=== PATIENT | female | born 1985 | race Caucasian/White ===

== ENCOUNTER 2017-06-26 19:18 | Observation (INO) | payer OTHER ==
[2017-06-26] MEDS ORDERED: KETOROLAC 30 MG/ML 1 ML VIAL IVP STA (19:37)
[2017-06-26] MEDS ORDERED: diphenhydrAMINE 50 MG/ML 1 ML VIAL IVP STA (19:37)
[2017-06-26] MEDS ORDERED: SODIUM CHLORIDE 0.9% 1,000 ML IV STA ×2 (19:37)
[2017-06-26] MEDS ORDERED: HYDROmorphone 1 MG/ML 1 ML SYRINGE IVP STA (19:37)
[2017-06-26] MEDS ORDERED: METOCLOPRAMIDE 5 MG/ML 2 ML VIAL IVP STA (19:37)
[2017-06-26] MEDS ORDERED: MAG HYDROX/AL HYDROX/SIMETH 30 ML, HYOSCYAMINE ELIXIR 10 ML, CIMETIDINE HCL 300 MG, LID... PO STA ×4 (19:38)
--- NOTE | 2017-06-26 19:44 | ED ---
Abdominal Pain HPI - General Chief Complaint: Abdominal Pain Stated Complaint: Crohns Time Seen by Provider: 06/26/17 19:29 Source: patient, RN notes reviewed, old records reviewed Mode of arrival: ambulatory Limitations: no limitations - History of Present Illness Initial Comments: This is a pleasant 32-year-old female presents emergency department today chief complaint of diffuse abdominal pain for the past 2 days. She also has had multiple episodes of vomiting and diarrhea. She has a history of Crohn's disease and believes she is having a flare. Surgical history includes cholecystectomy, and C-sections. She denies any fever or chills. She did note some blood in her stools today but not a significant amount. She reports the last time she was on steroids and antibiotics was approximately 3 months ago. She is from [place], [place]. She is currently in [facility]. Patient states that she has had over 10 episodes of vomiting today, and is having a sore throat due to this. Patient denies any chest pain, shortness of breath, headache, vision changes, neck pain, or any other symptoms. - Related Data Home Medications Medication Instructions Recorded Confirmed Dicyclomine [Bentyl] 20 mg PO TID 06/26/17 06/26/17 Loperamide [Imodium] 2 mg PO QID PRN 06/26/17 06/26/17 OLANZapine [ZyPREXA] 20 mg PO DAILY 06/26/17 06/26/17 PARoxetine HCL [Paxil] 10 mg PO DAILY 06/26/17 06/26/17 Promethazine Suppository 25 mg RECTAL BID PRN 06/26/17 06/26/17 [Phenergan] Allergies Allergy/AdvReac Type Severity Reaction Status Date / Time divalproex sodium Allergy Confusion Verified 06/26/17 19:39 [From Depakote] Iodinated Contrast- Oral and Allergy Swelling Verified 06/26/17 19:39 IV Dye Penicillins Allergy Swelling Verified 06/26/17 19:39 Review of Systems ROS Statement: Those systems with pertinent positive or pertinent negative responses have been documented in the HPI. ROS Other: All systems not noted in ROS Statement are negative. Past Medical History Additional Past Medical History / Comment(s): chrons History of Any Multi-Drug Resistant Organisms: None Reported Past Surgical History: Section, Cholecystectomy Past Psychological History: Bipolar Smoking Status: Current every day smoker Past Alcohol Use History: Occasional Past Drug Use History: Cocaine General Exam - General Exam Comments Initial Comments: 32-year-old female. No distress. Limitations: no limitations General appearance: alert, in no apparent distress Head exam: Present: atraumatic, normocephalic, normal inspection Eye exam: Present: normal appearance, PERRL, EOMI. Absent: scleral icterus, conjunctival injection, periorbital swelling ENT exam: Present: normal exam, mucous membranes moist Neck exam: Present: normal inspection. Absent: tenderness, meningismus, lymphadenopathy Respiratory exam: Present: normal lung sounds bilaterally. Absent: respiratory distress, wheezes, rales, rhonchi, stridor Cardiovascular Exam: Present: regular rate, normal rhythm, normal heart sounds. Absent: systolic murmur, diastolic murmur, rubs, gallop, clicks GI/Abdominal exam: Present: soft, tenderness (Diffuse), normal bowel sounds. Absent: distended, guarding, rebound, rigid Extremities exam: Present: normal inspection, full ROM, normal capillary refill. Absent: tenderness, pedal edema, joint swelling, calf tenderness Back exam: Present: normal inspection Neurological exam: Present: alert, oriented X3, CN II-XII intact Psychiatric exam: Present: normal affect, normal mood Skin exam: Present: warm, dry, intact, normal color. Absent: rash Course Vital Signs 06/26/17 06/26/17 06/26/17 19:20 20:59 23:01 Temperature 98.5 F Pulse Rate 108 H 79 95 Respiratory 18 18 18 Rate Blood Pressure 120/78 123/75 125/74 O2 Sat by Pulse 100 98 96 Oximetry 06/27/17 00:15 Temperature Pulse Rate 98 Respiratory 18 Rate Blood Pressure 108/70 O2 Sat by Pulse 96 Oximetry Medical Decision Making - Medical Decision Making Physical 32-year-old female presents emergency department today with a known history of Crohn's disease chief complaint of multiple episodes of vomiting, bloody stools and diarrhea. She does have diffuse abdominal tenderness. Patient reports she's in [facility] facility due to alcohol abuse. Patient reports that she could have a possible exposure to hep C but she is unsure. At this time patient's labwork was reviewed to show significant for elevated liver enzymes. She was diffusely tender over abdomen I ordered a CT. Stone if any acute process at this time. Patient's stool occult is positive. Discussed with Dr. Reyes. He discussed this with the admitting physician Dr. Villeda. This patient this time pending hepatitis panel. - Lab Data Result diagrams: 06/26/17 20:15 06/26/17 20:15 Lab Results 06/26/17 06/26/17 06/26/17 Range/Units 20:15 20:15 20:15 WBC 6.9 (3.8-10.6) k/uL RBC 4.80 (3.80-5.40) m/uL Hgb 16.2 H (11.4-16.0) gm/dL Hct 47.8 H (34.0-46.0) % MCV 99.5 (80.0-100.0) fL MCH 33.7 (25.0-35.0) pg MCHC 33.9 (31.0-37.0) g/dL RDW 12.3 (11.5-15.5) % Plt Count 243 (150-450) k/uL Neutrophils % 61 % Lymphocytes % 27 % Monocytes % 7 % Eosinophils % 2 % Basophils % 1 % Neutrophils # 4.2 (1.3-7.7) k/uL Lymphocytes # 1.8 (1.0-4.8) k/uL Monocytes # 0.5 (0-1.0) k/uL Eosinophils # 0.1 (0-0.7) k/uL Basophils # 0.1 (0-0.2) k/uL Sodium 142 (137-145) mmol/L Potassium 4.7 (3.5-5.1) mmol/L Chloride 108 H (98-107) mmol/L Carbon Dioxide 26 (22-30) mmol/L Anion Gap 8 mmol/L BUN 13 (7-17) mg/dL Creatinine 0.84 (0.52-1.04) mg/dL Est GFR (MDRD) Af Amer >60 (>60 ml/min/1.73 sqM) Est GFR (MDRD) Non-Af >60 (>60 ml/min/1.73 sqM) Glucose 117 H (74-99) mg/dL Calcium 10.1 (8.4-10.2) mg/dL Total Bilirubin 0.7 (0.2-1.3) mg/dL AST 431 H (14-36) U/L ALT 919 H (9-52) U/L Alkaline Phosphatase 242 H (38-126) U/L Total Protein 7.7 (6.3-8.2) g/dL Albumin 4.2 (3.5-5.0) g/dL Amylase 111 H (30-110) U/L Lipase 328 H (23-300) U/L Urine Color Yellow Urine Appearance Clear (Clear) Urine pH 7.5 (5.0-8.0) Ur Specific Pyrites 1.009 (1.001-1.035) Urine Protein Negative (Negative) Urine Glucose (UA) Negative (Negative) Urine Ketones Negative (Negative) Urine Blood Negative (Negative) Urine Nitrite Negative (Negative) Urine Bilirubin Negative (Negative) Urine Urobilinogen <2.0 (<2.0) mg/dL Ur Leukocyte Esterase Negative (Negative) Stool Occult Blood (Negative) 06/26/17 Range/Units 21:55 WBC (3.8-10.6) k/uL RBC (3.80-5.40) m/uL Hgb (11.4-16.0) gm/dL Hct (34.0-46.0) % MCV (80.0-100.0) fL MCH (25.0-35.0) pg MCHC (31.0-37.0) g/dL RDW (11.5-15.5) % Plt Count (150-450) k/uL Neutrophils % % Lymphocytes % % Monocytes % % Eosinophils % % Basophils % % Neutrophils # (1.3-7.7) k/uL Lymphocytes # (1.0-4.8) k/uL Monocytes # (0-1.0) k/uL Eosinophils # (0-0.7) k/uL Basophils # (0-0.2) k/uL Sodium (137-145) mmol/L Potassium (3.5-5.1) mmol/L Chloride (98-107) mmol/L Carbon Dioxide (22-30) mmol/L Anion Gap mmol/L BUN (7-17) mg/dL Creatinine (0.52-1.04) mg/dL Est GFR (MDRD) Af Amer (>60 ml/min/1.73 sqM) Est GFR (MDRD) Non-Af (>60 ml/min/1.73 sqM) Glucose (74-99) mg/dL Calcium (8.4-10.2) mg/dL Total Bilirubin (0.2-1.3) mg/dL AST (14-36) U/L ALT (9-52) U/L Alkaline Phosphatase (38-126) U/L Total Protein (6.3-8.2) g/dL Albumin (3.5-5.0) g/dL Amylase (30-110) U/L Lipase (23-300) U/L Urine Color Urine Appearance (Clear) Urine pH (5.0-8.0) Ur Specific Pyrites (1.001-1.035) Urine Protein (Negative) Urine Glucose (UA) (Negative) Urine Ketones (Negative) Urine Blood (Negative) Urine Nitrite (Negative) Urine Bilirubin (Negative) Urine Urobilinogen (<2.0) mg/dL Ur Leukocyte Esterase (Negative) Stool Occult Blood Positive H (Negative) - Radiology Data Radiology results: report reviewed CT shows no acute intra-abdominal or intrapelvic process. Colonic fecal stasis. Notes of appendicitis or palpable traction. Disposition Clinical Impression: Acute hepatitis Disposition: ADMITTED IP TO THIS [facility] Condition: Stable Referrals: Nonstaff,Physician [REFERRING] - 1-2 days Time of Disposition: 00:41
[2017-06-26 20:26] LABS: Basophils # (A) 0.1 k/uL (0-0.2); Basophils % (A) 1 %; Eosinophils # (A) 0.1 k/uL (0-0.7); Eosinophils % (A) 2 %; HCT 47.8 % (34.0-46.0); HGB 16.2 gm/dL (11.4-16.0); Lymphocytes # (A) 1.8 k/uL (1.0-4.8); Lymphocytes % (A) 27 %; MCH 33.7 pg (25.0-35.0); MCHC 33.9 g/dL (31.0-37.0); MCV 99.5 fL (80.0-100.0); Mean Platelet Volume 7.7; Monocytes # (A) 0.5 k/uL (0-1.0); Monocytes % (A) 7 %; Neutrophils # (A) 4.2 k/uL (1.3-7.7); Neutrophils % (A) 61 %; Platelet Count 243 k/uL (150-450); RDW 12.3 % (11.5-15.5); WBC 6.9 k/uL (3.8-10.6)
[2017-06-26 20:27] LABS: Appearance,Urine Clear (Clear); Bilirubin,Urine Negative (Negative); Blood,Urine Negative (Negative); Color,Urine Yellow; Glucose,Urine (UA) Negative (Negative); Ketones,Urine Negative (Negative); Leukocyte Esterase,Urine Negative (Negative); Nitrite,Urine Negative (Negative); PH, Urine 7.5 (5.0-8.0); Protein,Urine Negative (Negative); Specific Gravity,Urine 1.009 (1.001-1.035); Urobilinogen,Urine <2.0 mg/dL (<2.0)
[2017-06-26 20:37] LABS: ALT 919 U/L (9-52); AST 431 U/L (14-36); Albumin 4.2 g/dL (3.5-5.0); Alkaline Phosphatase 242 U/L (38-126); Amylase 111 U/L (30-110); Anion Gap 8 mmol/L; Blood Urea Nitrogen 13 mg/dL (7-17); Calcium 10.1 mg/dL (8.4-10.2); Carbon Dioxide 26 mmol/L (22-30); Chloride 108 mmol/L (98-107); Glucose 117 mg/dL (74-99); Lipase 328 U/L (23-300); Potassium 4.7 mmol/L (3.5-5.1); Sodium 142 mmol/L (137-145); Total Bilirubin 0.7 mg/dL (0.2-1.3); Total Protein 7.7 g/dL (6.3-8.2)
--- NOTE | 2017-06-26 20:57 | XR ---
EXAMINATION TYPE: XR KUB DATE OF EXAM: 06/26/2017 8:41 PM CLINICAL HISTORY: Abdominal pain. TECHNIQUE: 2 views the abdomen were obtained in upright position. COMPARISON: None. FINDINGS: There is nonspecific bowel gas pattern. Surgical clips are identified in the gallbladder fo ssa. There is no evidence of bowel obstruction or fecal impaction. IMPRESSION: Overall nonobstructive bowel gas pattern.
[2017-06-26] MEDS ORDERED: RX INFO: IV CONTRAST WAS GIVEN 1 EACH MISC MISCELLANE PRN (22:29)
[2017-06-26] MEDS ORDERED: methylPREDNISolone SOD SUCCI 125 MG/2 ML VIAL IV STA (22:29)
[2017-06-26] MEDS ORDERED: PROMETHAZINE INJ 25 MG in SODIUM CHLORIDE 0.9% 50 ML IVPB STA (22:29)
--- NOTE | 2017-06-26 23:08 | CT ---
EXAM: CT Abdomen and Pelvis With Intravenous Contrast CLINICAL HISTORY: Reason: Nausea vomiting TECHNIQUE: Axial computed tomography images of the abdomen and pelvis with intravenous contrast. DLP is 447.0 mGy-cm. This CT exam was performed using one or more of the following dose reduction techniques: automated exposure control, adjustment of the mA and/or kV according to patient size, and/or use of iterative reconstruction technique. COMPARISON: No relevant prior studies available. FINDINGS: Lower thorax: No acute findings. ABDOMEN: Liver: Unremarkable. No mass. Gallbladder and bile ducts: Unremarkable. No calcified stones. No ductal dilation. Pancreas: Unremarkable. No mass. No ductal dilation. Spleen: Unremarkable. No splenomegaly. Adrenals: Unremarkable. No mass. Kidneys and ureters: Unremarkable. No solid mass. No hydronephrosis. Stomach and bowel: Unremarkable. No obstruction. No mucosal thickening. Appendix: Uterus is not enlarged. A 2.3 cm cyst is noted in the right ovary. Stool noted throughout the colon. Appendix is normal. Small bowel loops are normal. PELVIS: Bladder: Unremarkable. No mass. Reproductive: Unremarkable as visualized. ABDOMEN and PELVIS: Intraperitoneal space: Liver, spleen, pancreas, and both adrenal glands are normal. Both kidneys and the urinary bladder are normal. No free fluid. Gallbladder is been surgically removed. No free air. Bones/joints: Osseous structures are intact. No acute fracture. No dislocation. Soft tissues: Unremarkable. Vasculature: Unremarkable. No abdominal aortic aneurysm. Lymph nodes: Unremarkable. No enlarged lymph nodes. IMPRESSION: 1. No acute intra-abdominal or intrapelvic process. 2. Colonic fecal stasis. 3. No evidence of appendicitis or bowel obstruction.
[2017-06-27] MEDS ORDERED: ONDANSETRON 4 MG/2 ML VIAL IVP PRN (00:41)
[2017-06-27] MEDS ORDERED: ACETAMINOPHEN TAB 325 MG TAB PO PRN (00:41)
[2017-06-27] MEDS ORDERED: NALOXONE 0.4 MG/ML 1 ML VIAL IV PRN ×2 (00:41→01:15)
[2017-06-27] MEDS ORDERED: IBUPROFEN 400 MG TAB PO PRN (00:41)
[2017-06-27] MEDS ORDERED: NICOTINE 14MG/24HR PATCH TRANSDERM STA (01:05)
[2017-06-27] MEDS ORDERED: MORPHINE SULFATE 5 MG/ML SYRINGE IV PRN (01:15)
[2017-06-27] MEDS: SODIUM CHLORIDE 0.9% 1,000 ML IV SCH ×2 (01:17→09:18)
[2017-06-27] MEDS: KETOROLAC 30 MG/ML 1 ML VIAL IVP PRN ×2 (01:25→06:39)
--- NOTE | 2017-06-27 01:41 | P.HPIM ---
History of Present Illness H&P Date: 06/27/17 Chief Complaint: Vomiting and diarrhea 32-year-old female presents emergency department today chief complaint of diffuse abdominal pain for the past 2 days. She also has had multiple episodes of vomiting and diarrhea. She has a history of Crohn's disease and believes she is having a flare. Patient states that she has had over 10 episodes of vomiting and 8 episodes of diarrhea today, and is having a sore throat due to the vomiting. She denies any fever or chills but stated that she feels hot when she is throwing up. The color of her stool was dark brown and she did note some blood in it. She reports that when she gets her Crohn disease flareup she gets treated with steroids and antibiotics and it resolves with that treatment. The last time she was on steroids and antibiotics was approximately 3 months ago. Patient denies any chest pain, shortness of breath, headache, vision changes, neck pain, or any other symptoms. Patient stated that when she drinks alcohol or when she is under stress she usually gets the flareups so over the last several years she managed to lower her alcohol intake and to lower the stress level so that she won't get flareups frequently. Review of Systems 12 point review of system was performed, negative except for HPI Past Medical History Additional Past Medical History / Comment(s): chrons History of Any Multi-Drug Resistant Organisms: None Reported Past Surgical History: Section, Cholecystectomy Past Psychological History: Bipolar Smoking Status: Current every day smoker Past Alcohol Use History: Occasional Past Drug Use History: Cocaine Medications and Allergies Home Medications Medication Instructions Recorded Confirmed Type Dicyclomine [Bentyl] 20 mg PO TID 06/26/17 06/26/17 History Loperamide [Imodium] 2 mg PO QID PRN 06/26/17 06/26/17 History OLANZapine [ZyPREXA] 20 mg PO DAILY 06/26/17 06/26/17 History PARoxetine HCL [Paxil] 10 mg PO DAILY 06/26/17 06/26/17 History Promethazine Suppository 25 mg RECTAL BID PRN 06/26/17 06/26/17 History [Phenergan] Allergies Allergy/AdvReac Type Severity Reaction Status Date / Time divalproex sodium Allergy Confusion Verified 06/26/17 19:39 [From Depakote] Iodinated Contrast- Oral and Allergy Swelling Verified 06/26/17 19:39 IV Dye Penicillins Allergy Swelling Verified 06/26/17 19:39 Physical Exam Vitals: Vital Signs Temp Pulse Resp BP Pulse Ox 06/27/17 01:17 97.5 F L 92 17 115/75 95 06/27/17 00:15 98 18 108/70 96 06/26/17 23:01 95 18 125/74 96 06/26/17 20:59 79 18 123/75 98 06/26/17 19:20 98.5 F 108 H 18 120/78 100 Intake and Output 06/26/17 06/26/17 06/27/17 14:59 22:59 06:59 Other: Weight 68.039 kg Patient Weight 06/27/17 06:59 Weight 68.039 kg Constitutional: No acute distress, conversant, pleasant Eyes:Anicteric sclerae, moist conjunctiva, no lid-lag, PERRLA, ENMT: Oropharynx clear, no erythema, exudates Neck: Supple, FROM, no masses, or JVD, No carotid bruits, No thyromegaly Lungs: Clear to auscultation, Clear to percussion, Normal respiratory effort, no accessory muscle use Cardiovascular: Heart regular in rate and rhythm, No murmurs, gallops, or rubs, No peripheral edema Abdominal: Soft, diffusely tender, no guarding, rebound or rigidity, Normoactive bowel sounds, No hepatomegaly, No splenomegaly, No palpable mass Skin: Normal temperature, tone, texture, turgor, no induration, No subcutaneous nodules, No rash, lesions, No ulcers Extremities: No digital cyanosis, No clubbing, Pedal pulses intact and symmetrical, Radial pulses intact and symmetrical, No calf tenderness Psychiatric: Alert and oriented to person, place and time, appropriate affect, intact judgement Neuro: Muscles Strength 5/5 in all 4 extremities, Sensation to light touch grossly present throughout, Cranial nerves II-XII grossly intact, no focal sensory deficits Results CBC & Chem 7: 06/26/17 20:15 06/26/17 20:15 Labs: Abnormal Lab Results - Last 24 Hours (Table) 06/26/17 06/26/17 06/26/17 Range/Units 20:15 20:15 21:55 Hgb 16.2 H (11.4-16.0) gm/dL Hct 47.8 H (34.0-46.0) % Chloride 108 H (98-107) mmol/L Glucose 117 H (74-99) mg/dL AST 431 H (14-36) U/L ALT 919 H (9-52) U/L Alkaline Phosphatase 242 H (38-126) U/L Amylase 111 H (30-110) U/L Lipase 328 H (23-300) U/L Stool Occult Blood Positive H (Negative) Assessment and Plan Plan: #1 Acute abdominal pain, vomiting and diarrhea: Unclear etiology could be secondary to acute Crohn disease flareup Reviewed labs and imaging studies including computed tomography scan of the abdomen Obtain her medical records in the morning Admit to [facility] Nothing by mouth IV fluids Start Solu-Medrol, Levaquin and Flagyl for possible Crohn disease flareup Consult GI #2 Elevated LFTs: Rule out acute hepatitis Send hepatitis panel Repeat LFTs in the morning Liver ultrasound GI consult #3 Bipolar disorder: Stable Continue home medications #4 DVT prophylaxis SCDs
[2017-06-27] MEDS ORDERED: LEVOFLOXACIN 750MG-D5W PMX 750 MG in DEXTROSE/WATER 1 150ML.BAG IVPB SCH (02:00)
[2017-06-27] MEDS ORDERED: methylPREDNISolone SOD SUCCI 40 MG/ML 1 ML VIAL IV SCH (06:00)
--- NOTE | 2017-06-27 07:46 | US ---
EXAMINATION TYPE: US gallbladder DATE OF EXAM: 06/27/2017 COMPARISON: CT CLINICAL HISTORY: Pain. GB surgically absent per patient, history of Crohn's disease, elevated liver enzymes per patient. EXAM MEASUREMENTS: Liver Length: 16.4 cm Gallbladder Wall: Surgically absent cm CBD: 0.5 cm Right Kidney: 11.8 x 3.7 x 5.0 cm Pancreas: visualized portions wnl Liver: wnl Gallbladder: Surgically absent CBD: wnl Right Kidney: No hydronephrosis or masses seen Limited views of the pancreas are unremarkable. The liver is normal in size without biliary dilatation. The gallbladder is been removed. Distal common hepatic duct measures 5 mm. Right kidney is normal. The intrahepatic IVC is normal. IMPRESSION: Status post cholecystectomy.
[2017-06-27 07:48] VITALS: BP 116/71; PULSE 104; RESP 18; TEMP 98.1
[2017-06-27 07:56] LABS: Basophils % (A) 0 %; Eosinophils % (A) 0 %; HCT 45.2 % (34.0-46.0); HGB 14.8 gm/dL (11.4-16.0); Lymphocytes # (A) 0.8 k/uL (1.0-4.8); Lymphocytes % (A) 11 %; MCH 33.3 pg (25.0-35.0); MCHC 32.7 g/dL (31.0-37.0); MCV 101.7 fL (80.0-100.0); Mean Platelet Volume 7.4; Monocytes # (A) 0.1 k/uL (0-1.0); Monocytes % (A) 2 %; Neutrophils # (A) 6.7 k/uL (1.3-7.7); Neutrophils % (A) 86 %; Platelet Count 237 k/uL (150-450); RBC 4.44 m/uL (3.80-5.40); RDW 12.2 % (11.5-15.5); WBC 7.8 k/uL (3.8-10.6)
[2017-06-27 08:10] LABS: ALT 766 U/L (9-52); AST 289 U/L (14-36); Albumin 3.3 g/dL (3.5-5.0); Alkaline Phosphatase 210 U/L (38-126); Amylase 83 U/L (30-110); Anion Gap 6 mmol/L; Blood Urea Nitrogen 14 mg/dL (7-17); Calcium 8.9 mg/dL (8.4-10.2); Carbon Dioxide 18 mmol/L (22-30); Chloride 114 mmol/L (98-107); Glucose 124 mg/dL (74-99); Lipase 146 U/L (23-300); Magnesium 1.9 mg/dL (1.6-2.3); Phosphorus 3.2 mg/dL (2.5-4.5); Potassium 4.8 mmol/L (3.5-5.1); Sodium 138 mmol/L (137-145); Total Bilirubin 0.5 mg/dL (0.2-1.3); Total Protein 6.6 g/dL (6.3-8.2)
[2017-06-27 08:13] LABS: INR 1.1 (<1.2); Prothrombin Time 10.4 sec (9.0-12.0)
--- NOTE | 2017-06-27 08:28 | P.DS ---
Providers Date of admission: 06/27/17 00:42 Expected date of discharge: 06/27/17 Attending physician: Boris Johnson MD Consults: 06/27/17 01:18 Consult Physician Routine Consulting Provider: Caridad Oliva Consult Reason/Comments: crohn flare up Do you want consulting provider notified?: Yes Primary care physician: Priscilla Madera Ali - Discharge Diagnosis(es) (1) Acute Crohn's disease Current Visit: Yes Status: Acute (2) Tobacco abuse Current Visit: Yes Status: Acute (3) Acute hepatitis Current Visit: Yes Status: Acute Hospital Course: Patient is a 32-year-old female with a past medical history of Crohn' s disease, tobacco abuse, and opiate abuse who presented to the hospital with complaints of abdominal pain. She was found to have acute hepatitis and acute exacerbation of Crohn's disease. She was placed on steroids and antibiotics. her abdominal pain, nausea, and diarrhea resolved quickly. She was requesting to be discharged as she is currently at [facility]. She admits to IV opiated abuse in the past and knows that she may be at risk for hepaitits. She is aware that her liver enzymes are still high, but decreasing, and her hepatitis panel is pending. She is aware that if her liver enzymes continue to increase she may develop complications and she will follow-up on her blood work and request results thought medical records. Though I would like her to stay until her repeat liver enzymes are available she does not want to do this and is requesting discharge. She is alert and oriented X3 with a clear though process. She will complete an outpatient course of steroids and Antibiotics for her crohn'c flair. She is aware that she should follow-up with her PCP after completing rehab. She will be discharged. Patient seen and examined at bedside. Nausea, diarrhea, and abdominal pain. Aware that her liver enzymes are elevated and her hepatitis panel is pending. Discussion as outlined above. Vital signs reviewed and stable. General: non toxic, no distress, appears at stated age Derm: warm, dry Head: atraumatic, normocephalic, symmetric Eyes: EOMI, no lid lag, anicteric sclera Mouth: no lip lesion, mucus membranes moist Cardiovascular: S1S2 reg, no murmur, positive posterior tibial pulse bilateral, Lungs: CTA bilateral, no rhonchi, no rales , no accessory muscle use Abdominal: soft, nontender to palpation, no guarding, no appreciable organomegaly Ext: no gross muscle atrophy, no edema, no contractures Neuro: CN II-XI grossly intact, no focal neuro deficits Psych: Alert, oriented, appropriate affect A total of 25 minutes of time were spent preparing this complex discharge summary . Pertinent Studies: CT abdomen and pelvis- no acute process Liver ultrasound- s/p sandy Patient Condition at Discharge: Stable Plan - Discharge Summary Discharge Rx Participant: No New Discharge Prescriptions: New Ciprofloxacin HCl [Cipro] 250 mg PO Q12HR #10 tablet metroNIDAZOLE [Flagyl] 500 mg PO TID #15 tab predniSONE 20 mg PO DAILY #5 tab Continue OLANZapine [ZyPREXA] 20 mg PO DAILY Dicyclomine [Bentyl] 20 mg PO TID PARoxetine HCL [Paxil] 10 mg PO DAILY Promethazine Suppository [Phenergan] 25 mg RECTAL BID PRN #30 supp PRN Reason: Nausea Discontinued Loperamide [Imodium] 2 mg PO QID PRN PRN Reason: Loose Stool Discharge Medication List Dicyclomine [Bentyl] 20 mg PO TID 06/26/17 [History] OLANZapine [ZyPREXA] 20 mg PO DAILY 06/26/17 [History] PARoxetine HCL [Paxil] 10 mg PO DAILY 06/26/17 [History] Ciprofloxacin HCl [Cipro] 250 mg PO Q12HR #10 tablet 06/27/17 [Rx] Promethazine Suppository [Phenergan] 25 mg RECTAL BID PRN #30 supp 06/27/17 [Rx] metroNIDAZOLE [Flagyl] 500 mg PO TID #15 tab 06/27/17 [Rx] predniSONE 20 mg PO DAILY #5 tab 06/27/17 [Rx] Follow up Appointment(s)/Referral(s): Nonstaff,Physician [REFERRING] - 1-2 days Activity/Diet/Wound Care/Special Instructions: GI soft bland diet Activity as tolerated. Follow up with your family physician after discharge from rehab. Your Hepatitis testing is still pending and your liver enzymes are high, please make sure that you follow up on your results. You would also benefit being evaluated by a clinical research monitor for your crohn's disease and elevated lived enzymes. Discharge Disposition: HOME SELF-CARE
[2017-06-27] MEDS ORDERED: PARoxetine 10 MG TAB PO SCH (09:00)
[2017-06-27] MEDS ORDERED: metroNIDAZOLE 500 MG TAB PO SCH (09:00)
[2017-06-27] MEDS ORDERED: OLANZapine 10 MG TAB PO SCH (09:00)
[2017-06-27] MEDS ORDERED: NICOTINE 14MG/24HR PATCH TRANSDERM SCH (09:00)
[2017-06-27] MEDS ORDERED: PANTOPRAZOLE 40 MG/10 ML VIAL IV SCH (09:00)
[2017-06-27 10:40] LABS: Hepatitis A Antibody IgM Non-Reactive (Non-Reactive); Hepatitis B Core IgM Non-Reactive (Non-Reactive)
== END 2017-06-27 10:22 ==
LOC: EC 19:18 → 4MS4W 06-27 00:42 → INTOOBSV 06-27 00:42 → 4MS4W 06-27 01:01 → UNDODISIN 06-27 10:22
PROVIDERS: ADMIT Internal Medicine; ATTEND Internal Medicine
DX: K50.90 Crohn's disease, unspecified, without complications (principal); F17.200 Nicotine dependence, unspecified, uncomplicated; B17.9 Acute viral hepatitis, unspecified; F31.9 Bipolar disorder, unspecified; F11.10 Opioid abuse, uncomplicated; Z90.49 Acquired absence of other specified parts of digestive tract; Z79.899 Other long term (current) drug therapy; Z88.0 Allergy status to penicillin; Z88.8 Allergy status to other drugs, medicaments and biological substances; Z91.041 Radiographic dye allergy status
CPT/HCPCS: 96375 ×3; 96361 ×5; 96376 ×2; 96367; 96365; 99285; 36415; 80053 ×2; 80074; 82150 ×2; 83605; 83690 ×2; 83735; 84100; 85025 ×2; 85610; 82272; 81003; 87040; 74000; 76705; 74177; G0378; S4990; J1200; J2550; J2765; J2920; J2930; J1885 ×2; J1170; J1956; Q9967; C9113